=== PATIENT | male | born 1970 | race Caucasian/White ===

== ENCOUNTER 2023-03-23 15:07 | Outpatient (AMB) | payer OTHER, SELFPAY ==
--- NOTE | 2023-03-23 15:22 | A.SPINEOV_ITS ---
Intake Intake Visit Reasons: lower back pain goung down his left leg Intake Note: Mr. Powell is here today c/o radiating left leg pain. 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 He had a C7/T1 anterior discectomy done in August of 2021. He reports being very happy with his previous surgery and has no complaints in that regard. He is here today with a new complaint of low back pain. He states that roughly 1 month ago while driving a scooter at [facility] he felt sudden onset low back pain. He reports that the pain began in his lower back and quickly migrated to his left gastrocnemius and left dorsal side of his foot. He states that this back pain persisted for the next 2 weeks until he reached out to his primary care physician. His PCP referred him to [facility] for rule out of DVT. Venous duplex ultrasound reportedly showed no DVT. He has no history of coagulopathies or anticoagulation. He reports that standing and walking aggravate his pain, and laying down/resting alleviate his pain. He has not tried any conservative management for this pain as of yet aside from [id number] medications. On exam he has 5/5 strength in his lower extremities with the exception of the left anterior tibialis Gr 4+/5. Sensation remains intact. Patient is able to ambulate but was using crutches. He is able to ambulate without the crutches if needed and can get up from a seated position without much difficulty. He was encouraged to try physical therapy and informed that we can put in a referral for cortisone injections of his low back in 1-2 weeks if physical therapy is not beneficial. This patient was assessed with Dr. Hutchinson, who also recommended that the patient call us back in the next few weeks if his symptoms do not begin to subside at which time we will order an MRI. Total amount of time spent in this visit was 45 minutes in discussion of symptoms, MRI imaging results, PT referral and subsequent plan of care. Fransisco Hutchinson MD,PhD [facility] Orders: Orders PT Evaluation and Treatment Today M54.16 - Radiculopathy, lumbar region Coding Level of Care Code Est Pt Level 5 (01685) Diagnoses Lumbar radiculopathy M54.16
== END 2023-03-23 15:54 | disposition home or self-care (01) ==
PROVIDERS: PCP Internal Medicine; Visit Provider Neurological Surgery
DX: M54.16 Radiculopathy, lumbar region (principal)
CPT/HCPCS: 99215

== ENCOUNTER → 2023-03-23 15:07 | Outpatient (BNVA) | payer OTHER, SELFPAY | PROVIDERS: PCP Internal Medicine; Visit Provider Neurological Surgery | DX: M54.16 Radiculopathy, lumbar region (principal) | CPT/HCPCS: 99212 ==

== ENCOUNTER 2025-07-24 14:37 | Outpatient (AMB) | payer OTHER, SELFPAY ==
--- NOTE | 2025-07-24 15:05 | A.OFFVIS_ITS ---
Vital Signs 07/24/25 15:06 Height 5 ft 11 in Weight 406 lb BMI 56.6 Intake Visit Reasons: NPV Rosemary Ref- eval for back injection Intake Note: Patient is a 55 year old male here today for new patient office visit. Patient has been referred for chronic low back pain with left sided sciatica pain travles down the leg .previously had a cortisone shot for this no heat ice dose not help tyl and ibuprofen ass needed to help and Allergies No Known Allergies (No Known Allergies*) Allergy (Unverified 04/15/22 10:08) HPI Comments Details: History of Present Illness The patient is a 55 year old male presenting with recurrent sciatica. He reports suffering from a recurrence of sciatic nerve pain that feels exactly the same as an episode from a few years ago, with pain radiating down the leg into the calf. The pain fluctuates, ranging from a 7/10 to a 10/10, and can occur even while lying in bed, sometimes presenting as a spasm. For the previous episode, he received a cortisone injection which provided relief for a long time. He believes he had an MRI of his back at that time, which would have been performed at [facility]. He currently takes oxycodone four times a day for his lower back and leg pain, as well as ibuprofen. He also takes gabapentin sometimes, but is unsure if it is helpful. Patient did undergo epidural injection in the past with very good relief of his symptoms. He is requesting repeat injection. I reviewed the referring provider's no prior to consultation. Pain Description - Location: The pain is in the lower back and radiates down the side of the leg into the calf. - Quality: The patient describes the pain as suffering and agony , and at times it feels like a spasm. - Severity: Pain fluctuates; it was a 7/10 on the day of the visit but can be a 10/10 at other times. - Timing: Pain can occur at any time, including while lying in bed. - Exacerbating Factors: Straightening the left leg causes tightness. - Relieving Factors: A previous cortisone injection provided long-term relief. - Associated Symptoms: The patient reports no numbness. [facility] Surgical History (Updated 07/23/25 @ 08:11 by Viridiana Aguilera MA) History of ankle surgery Social History (Updated 07/23/25 @ 08:12 by Viridiana Aguilera MA) Alcohol intake: current Alcohol intake frequency: does not drink Patient Tobacco Use Status: Never used Tobacco Review of Systems Narrative Review of Systems - Musculoskeletal: Reports low back pain and muscle spasms. - Neurological: Reports pain radiating down his leg. - He denies numbness. Physical Exam Exam Exam: Physical Exam - Back: Tenderness to palpation in the lower lumbar region. - Lumbar extension does not significantly increase pain. - Neurological: Motor strength is intact in the lower extremities, including foot flexion/extension and hip flexion. - Sensation is intact to light touch throughout the lower extremities bi laterally. - Straight leg raise test is positive on the left, eliciting tightness and tension. - Straight leg raise test is negative on the right. Vital Signs: BMI result Body Mass Index 56.6 Results Reviewed Results Reviewed: MRI lumbar spine 03/02/2016 impression: Transitional lumbosacral anatomy as discussed above with partially sacralization of L5 vertebrae. Posterior disc osteophyte complex asymmetric to the right at L4-5 level with increase right lateral recess, neuroforaminal narrowing compared to prior exam. Patient has severe neuroforaminal narrowing on the [id number] at L4-5. Assessment & Plan Assessment & Plan (1) Lumbar spondylosis: Code(s): M47.816 - Spondylosis without myelopathy or radiculopathy, lumbar region Category: Medical Plan Pain Management - Analgesia: The patient reports his current pain level is a 7/10 but can be a 10/10. - He is currently taking oxycodone four times a day, ibuprofen, and gabapentin, though he is unsure if the gabapentin helps. - A previous cortisone injection provided long-term relief. - Activities of Daily Living: The pain significantly impacts his quality of life, occurring even while lying in bed, and he describes it as suffering and being in agony . - Affect: The patient states he is suffering due to the pain. Plan Patient was informed and verbally consented to the use of an ambient scribe for clinic note documentation during this visit. 1. Sciatica The patient presents with recurrent sciatica with symptoms that are identical to a previous episode that responded well to a cortisone injection. Patient underwent epidural injection in the past with greater than 50% reduction of his pain for over a year. Patient's pain has returned despite performing his physician directed home exercise plan and using his medications as prescribed. I recommend repeat epidural injection, left L4 TFESI and he is eager to proceed. We will obtain prior authorization for his injection contact him once we have done so. We discussed the benefits of proper nutrition and exercise to maintain a healthy body weight to improve longevity and function. We also discussed the benefits of proper lifting techniques, core strengthening and proper posture. Thank you for allowing me to participate in the care of your patient. Patient Instructions - We will try to find your previous back MRI report. - If we find the old MRI, we can order a cortisone injection for your pain. - If we cannot find the old MRI, we will need to schedule a new one before we can proceed with an injection. - Continue taking your current pain medications as you have been. - We will contact you with the next steps. Coding Level of Care Code Tele New Pt Level 3 (49416) Diagnoses Lumbar spondylosis M47.816
[2025-07-24 15:06] VITALS: BMI 56.6
== END 2025-07-24 15:40 | disposition home or self-care (01) ==
LOC: HO.HPHYS 14:38
PROVIDERS: PCP Internal Medicine; Visit Provider Physician Assistant
DX: M47.816 Spondylosis without myelopathy or radiculopathy, lumbar region (principal)
CPT/HCPCS: 99203

== ENCOUNTER → 2025-07-24 14:37 | Outpatient (BNVA) | payer OTHER, SELFPAY | PROVIDERS: PCP Internal Medicine; Visit Provider Physician Assistant | DX: M47.816 Spondylosis without myelopathy or radiculopathy, lumbar region (principal) | CPT/HCPCS: 99202 ==